=== PATIENT | male | born 1990 | race Caucasian/White ===

== ENCOUNTER → 2018-01-24 | Outpatient (CLI) | payer OTHER ==
--- NOTE | 2018-01-24 11:38 | RAD ---
2 view study of the right ankle Clinical indications: Twisting injury with pain. FINDINGS: Mild lateral soft tissue swelling is evident. There is a small avulsion fracture of the lateral aspect of the body of the talus. The mortise ankle joint is intact. IMPRESSION: Small avulsion fracture of the lateral aspect of the body of the talus. Electronically signed by: Jack Lee MD (01/24/2018 11:35 AM) [id number]
== END | disposition home or self-care (01) ==
LOC: PMG 10:50
PROVIDERS: ATTEND Nurse Practitioner Family
DX: S92.151A Displaced avulsion fracture (chip fracture) of right talus, initial encounter for closed fracture (principal); X58.XXXA Exposure to other specified factors, initial encounter; Y93.89 Activity, other specified; Y92.89 Other specified places as the place of occurrence of the external cause; Y99.8 Other external cause status
CPT/HCPCS: 73600